=== PATIENT | female | born 1980 ===

== ENCOUNTER 2017-09-29 11:15 | Inpatient (IN) | payer OTHER ==
[~2017-09-29] VITALS: Ht 165.1 cm; Wt 57.6 kg
[2017-10-19] MEDS ORDERED: SYNTHROID112 MCG PO (08:25)
[2017-10-19] MEDS ORDERED: PRENATAL TABLE1 EAC1 PO (08:27)
== END 2017-10-21 13:57 | disposition home or self-care (01) | DRG 775 ==
LOC: LDR 10-19 05:09 → SURG-SUITE 10-19 07:23 → OB/GYN 10-24 11:15
PROC: 10E0XZZ Delivery of Products of Conception, External Approach (ICD-10-PCS; principal; 2017-10-19)
PROC: 0KQM0ZZ Repair Perineum Muscle, Open Approach (ICD-10-PCS; 2017-10-19)
PROC: 4A1HXCZ Monitoring of Products of Conception, Cardiac Rate, External Approach (ICD-10-PCS; 2017-10-19)
DX: O70.1 Second degree perineal laceration during delivery (principal); Z37.0 Single live birth; Z3A.39 39 weeks gestation of pregnancy